=== PATIENT | male | born 1960 | race Caucasian/White ===

== ENCOUNTER → 2016-12-19 | Day surgery (SDC) | payer OTHER ==
[~2016-12-19] MED LIST: ACETAMINOPHEN 1000 MG/100 ML VIAL IV ONE; BUPIVACAINE/EPINEPHRINE 0.5% PF 10 ML VIAL ONE; LACTATED RINGER'S 1000 ML INJ 1,000 ML ONE; LIDOCAINE 1.5%/EPINEPHrine 1:200,000 PF SOLN 30 ML AMP ONE; LIDOCAINE HCL 1% PF 5 ML AMPULE ONE; ONDANSETRON HCL 4 MG/2 ML VIAL IV PUSH ONE; PROPOFOL 200 MG/20 ML AMP IV ONE; PROPOFOL 200 MG/20 ML AMP ONE; PROT40TA PO; ceFAZolin INJ 1,000 MG VIAL ONE
--- NOTE | 2016-12-19 14:15 | TN ---
cc: HENRY ATKINS M.D. DATE OF SURGERY: 12/19/2016 PREOPERATIVE DIAGNOSIS Right inguinal hernia. POSTOPERATIVE DIAGNOSIS Right inguinal hernia. PROCEDURE Repair right inguinal hernia with mesh. ANESTHESIA General. SURGEON Dr. Atkins. SILK SPOTTER Devika Thompson, MATIAS INDICATION This is a 56-year gentleman who has a symptomatic right inguinal hernia. Plans were made for above. PROCEDURE The patient was taken to the operating room and placed in the supine position. After anesthesia his right groin was prepped with Betadine. Time-out was performed. We make a curvilinear incision overlying the internal and external ring of the inguinal canal on the right side, we dissect down through Zeina's fascia identifying the external oblique aponeurosis which is incised. The cord structures were then surrounded with a Silva drain. A indirect sac is noted, from the cord structures. He had some lipomatous structure associated with it which is easily reduced into the internal ring. The ilioinguinal nerve was preserved. After that was done we then placed a piece of polypropylene mesh, securing to the pubic tubercle, Lucas's ligament, iliopubic tract out laterally and the conjoined tendon medially, all done with 0 Ethibond. Tails were then secured to themselves and the internal oblique aponeurosis with the 0 Ethibond. We then irrigate, hemostasis was assured. We then closed the external oblique aponeurosis with a 2-0 Vicryl and deep layer was closed with 3-0 Vicryl, skin was closed with 4-0 Vicryl. Steri-Strips were applied. Sterile bandage was applied. The patient tolerated the procedure well and had no immediate postop complications. Henry Atkins MD JREGINA/RAEANN /1:24 PM /2:09 PM
== END | disposition home or self-care (01) ==
LOC: ESDC 07:54
PROVIDERS: ATTEND Surgery
DX: K40.90 Unilateral inguinal hernia, without obstruction or gangrene, not specified as recurrent (principal)
CPT/HCPCS: 00830; 49505; C1781; J0131; J0690; J2405; J3010; J7120